=== PATIENT | female | born 1975 | race Caucasian/White ===

== ENCOUNTER 2021-04-06 02:08 | Emergency (ER) | payer MEDICAID ==
[~2021-04-06] VITALS: Ht 170.2 cm; Wt 63.0 kg
[2021-04-06] MEDS ORDERED: IBUPROFEN 400MG TABLET PO ONE (03:15)
[2021-04-06 03:40] LABS: *AMPHETAMINES SCREEN URINE NEGATIVE (NEGATIVE); *BARBITURATES SCREEN URINE NEGATIVE (NEGATIVE); *BENZODIAZEPINES SCREEN URINE NEGATIVE (NEGATIVE); *COCAINE SCREEN URINE NEGATIVE (NEGATIVE)
[2021-04-06 03:43] LABS: METHADONE URINE SCREEN NEGATIVE (NEGATIVE); OPIATES URINE SCREEN NEGATIVE (NEGATIVE); PHENCYCLIDINE URINE SCREEN NEGATIVE (NEGATIVE)
[2021-04-06 03:48] LABS: CANNABINOID URINE SCREEN PRESUMTIVE POSITIVE (NEGATIVE)
[2021-04-06 06:40] VITALS: BP 102/61
== END 2021-04-06 06:42 | disposition home or self-care (01) ==
LOC: ER 02:08
DX: F41.9 Anxiety disorder, unspecified (principal); F10.129 Alcohol abuse with intoxication, unspecified; F12.90 Cannabis use, unspecified, uncomplicated; Y90.9 Presence of alcohol in blood, level not specified; F17.210 Nicotine dependence, cigarettes, uncomplicated
CPT/HCPCS: 36415; 80305; 80320; 99283; G0480

== ENCOUNTER 2021-04-11 13:24 | Emergency (ER) | payer MEDICAID ==
[~2021-04-11] VITALS: Ht 165.1 cm; Wt 78.0 kg
[2021-04-11 13:26] VITALS: BP 105/61
[2021-04-11] MEDS ORDERED: ACETAMINOPHEN WITH CODEINE 300/30MG TABLET PO ONE (15:30)
[2021-04-11] MEDS ORDERED: IBUP-2030 MT (15:44)
[2021-04-11] MEDS ORDERED: NAPR-681 MT (15:47)
== END 2021-04-11 15:57 | disposition home or self-care (01) ==
LOC: ER 14:15
DX: S40.011A Contusion of right shoulder, initial encounter (principal); F41.9 Anxiety disorder, unspecified; F32.9 Major depressive disorder, single episode, unspecified; Y04.0XXA Assault by unarmed brawl or fight, initial encounter; Y92.89 Other specified places as the place of occurrence of the external cause
CPT/HCPCS: 71045; 73010; 99284

== ENCOUNTER 2021-05-22 12:36 | Emergency (ER) | payer MEDICAID ==
[~2021-05-22] VITALS: Ht 160 cm; Wt 100.0 kg
[~2021-05-22 12:36] MED LIST: NAPR-681 MT
[2021-05-22 14:03] LABS: BASOPHILS % 0.5 % (0.0-2.0); EOSINOPHILS % 0.4 % (0.0-5.0); HEMATOCRIT. 34.2 % (36.0-48.0); HEMOGLOBIN. 11.4 g/dL (12.0-16.0); MEAN CORPUSCULAR HEMOGLOBIN 28.6 pg (28.0-32.0); NEUTROPHILS % 64.1 % (40.0-76.0); PLATELET 256 x1000/uL (130-400); RED BLOOD CELL COUNT 3.97 mill/uL (4.2-5.4); RED CELL DISTRIBUTION WIDTH 23.7 % (11.6-14.6)
[2021-05-22 14:44] LABS: PLATELET ESTIMATE NORMAL
[2021-05-22] MEDS ORDERED: MAGNESIUM/ALUMINUM HYDROXIDE/SIMETHICONE 30ML UDC PO ONE (14:45)
[2021-05-22 15:33] VITALS: BP 118/68
[2021-05-22 16:06] LABS: CHLORIDE 108 mEq/L (98-107)
== END 2021-05-22 15:35 | disposition home or self-care (01) ==
LOC: ER 12:36
DX: R10.13 Epigastric pain (principal); R11.2 Nausea with vomiting, unspecified; R06.02 Shortness of breath; Z98.890 Other specified postprocedural states
CPT/HCPCS: 36415; 71045; 80053; 84484; 85025; 93005; 99285